=== PATIENT | male | born 1955 | race Caucasian/White ===

== ENCOUNTER 2020-04-07 16:30 | Outpatient (REF) | payer OTHER, SELFPAY | END 2020-04-07 16:31 | disposition home or self-care (01) | LOC: HO.LAB 16:30 | PROVIDERS: PCP Internal Medicine; Visit Provider Internal Medicine | DX: Z20.822 Contact with and (suspected) exposure to COVID-19 (principal) | CPT/HCPCS: 36415; C9803; U0003 ==

== ENCOUNTER 2020-10-08 12:14 | Outpatient (REF) | payer OTHER, SELFPAY ==
[2020-10-08 12:39] LABS: COVID-19 Test Negative (Negative)
== END 2020-10-08 12:15 | disposition home or self-care (01) ==
LOC: HO.LAB 12:14
PROVIDERS: PCP Internal Medicine; Visit Provider Internal Medicine
DX: Z20.822 Contact with and (suspected) exposure to COVID-19 (principal)
CPT/HCPCS: 36415; 87635; C9803

== ENCOUNTER 2021-03-11 17:39 | Emergency (ER) | payer OTHER, SELFPAY ==
[2021-03-11 19:14] VITALS: BP 154/77; PULSE 76; RESP 16; TEMP 36.9; O2SAT 99; BMI 23.7
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
[2021-03-11] MEDS: Diphth,Pertus(ACell),Tet Adult 0.5 ML SYRINGE IM (21:54)
== END 2021-03-11 22:23 | disposition home or self-care (01) ==
PROVIDERS: Emergency Provider Emergency Medicine Emergency Medical Services; PCP Internal Medicine
DX: T65.891A Toxic effect of other specified substances, accidental (unintentional), initial encounter (principal); T24.421A Corrosion of unspecified degree of right knee, initial encounter; T24.422A Corrosion of unspecified degree of left knee, initial encounter; Y93.9 Activity, unspecified; Y92.9 Unspecified place or not applicable; Y99.0 Civilian activity done for income or pay
CPT/HCPCS: 90471; 90715; 99283; 99284

== ENCOUNTER 2021-03-18 07:56 | Outpatient (RCR) | payer OTHER, SELFPAY | END 2021-04-15 15:08 | disposition home or self-care (01) | LOC: HO.WCC 07:56 | PROVIDERS: PCP Internal Medicine; Visit Provider Surgery | DX: T24.622A Corrosion of second degree of left knee, initial encounter (principal); T54.3X1A Toxic effect of corrosive alkalis and alkali-like substances, accidental (unintentional), initial encounter | CPT/HCPCS: 11042; 16020; 99212 ==

== ENCOUNTER 2022-11-04 11:50 | Emergency (ER) | payer OTHER, SELFPAY ==
[2022-11-04 12:08] VITALS: BP 153/96; PULSE 86; RESP 18; TEMP 36.6; O2SAT 98; BMI 25.2
--- NOTE | 2022-11-04 12:08 | ED.GENADULT ---
HPI - General Adult General Chief complaint: Wound/Laceration Stated complaint: Cut L index finger Time Seen by Provider: 11/04/22 14:47 Source: patient and RN notes reviewed Mode of arrival: ambulatory Limitations: no limitations History of Present Illness HPI narrative: This is a 66-year-old male presenting to the emergency department for evaluation of laceration to left 2nd digit. Patient reports that while he was at work he accidentally lacerated his left 2nd digit using a utility knife. Patient states that the utility knife was clean. He is up-to-date with his tetanus shot. Denies numbness or tingling into his finger. Denies weakness into his finger. Denies any other complaints or concerns at this time. MD complaint: Laceration left 2nd digit Onset (ago): minute(s) Location: left and upper extremity Radiation: non-radiation Severity: mild Relieving factors: none Exacerbating factors: none Associated symptoms: denies other symptoms Treatments prior to arrival: none Related Data Previous Rx's Medication Instructions Recorded bacitracin zinc 500 unit-polymyxin 1 appl topical Q8H 7 days #28.4 03/11/21 B 10,000 unit/gram topical ointment grams naproxen 500 mg tablet 500 mg PO BID PRN pain 10 days #20 03/11/21 tabs Allergies Allergy/AdvReac Type Severity Reaction Status Date / Time No Known Allergies Allergy Verified 11/04/22 12:08 [No Known Allergies*] Review of Systems Review of Systems: Yes all other systems are reviewed and are negative PMFSH Past Medical History Attestation statement: The following information was validated with the patient. Social History Social History Smoked in Last 30 Days: No Use of substances other than those prescribed or required for medical reasons: No Advance Directives: No Physical Exam ED Vital Signs: Vital Signs - 24 hr 11/04/22 12:08 11/04/22 14:41 Temperature 98 F Pulse Rate 86 62 Respiratory Rate 18 18 Blood Pressure 153/96 H 147/86 H Pulse Oximetry 98 97 Oxygen Delivery Method Room Air Room Air BMI result Body Mass Index 25.2 Const Other: General: Awake, alert, and oriented X3. No acute distress. HEENT: Normal inspection CVS: Normal heart rate and rhythm. Pulses normal. Respiratory: No respiratory distress Skin: Left 2nd digit with superficial linear vertical laceration measuring approximately 2 mm the base of the fingernail. No active bleeding or drainage. No foreign body noted. Full range of motion of the D IP PIP and MCP. Able to make a fist without difficulty. Radial pulses 2+. Distal sensation circulation intact. Neuro: Oriented X 3. No motor deficit. No sensory deficit. Course Course Course Narrative: RME- 66 year old male presents for evaluation of small left index finger laceration. Medical Decision Making Medical Decision Making MDM Narrative: 66-year-old male presenting to the emergency department for evaluation of superficial laceration to his left 2nd digit. On arrival, vital signs within normal limits besides a mildly hypertensive blood pressure at 153/96. Patient is asymptomatic, denies any headaches, dizziness, chest pain or shortness of breath. Wound was extensively cleansed using Betadine and saline, there is no foreign body, tendon involvement. Wound appears superficial, will close wound using Dermabond. Range of motion of the left 2nd finger full and intact. Procedure was well tolerated without any complications or concerns. Patient given good wound care instructions, advised to return with any signs of infection. Patient understands and agrees with plan. Patient is up-to-date with his tetanus. Patient stable for discharge. Differential Diagnosis Differential Diagnoses: The differential diagnosis associated with the presentation includes Laceration, contusion, abrasion, foreign body Discharge Plan Discharge Clinical Impression: Laceration Patient Disposition: Home, Self-Care Additional Instructions: We were able to close the wound on your finger with liquid bandage. Do not submerge your wound until it is fully healed. If the wound gets wet, pat dry, do not pick at wound. Watch for any signs of infection including but not limited to worsening redness, swelling, drainage, fevers or chills. Please return if any of these occur. Prescriptions: No Action naproxen 500 mg tablet 500 mg PO BID PRN (Reason: pain) 10 Days Qty: 20 0RF bacitracin zinc-polymyxin B 500-10,000 unit/gram ointment 1 appl topical Q8H 7 Days Qty: 28.4 0RF Interventions: ED Discharge Assessment Last Done: 11/04/22 16:08 Discharge Date/Time: 11/04/22 16:09
[2022-11-04 14:41] VITALS: BP 147/86; PULSE 62; RESP 18; O2SAT 97
--- NOTE | 2022-11-04 15:25 | PC.NURSE ---
PT HAS A TETANUS DOCUMENTED IN THE MR ON 03/11/21
--- NOTE | 2022-11-04 16:08 | PC.NURSE ---
DSD NONSTICK DRESSING APPLIED
== END 2022-11-04 16:09 | disposition home or self-care (01) ==
PROVIDERS: Emergency Provider Emergency Medicine; PCP Internal Medicine
DX: S61.211A Laceration without foreign body of left index finger without damage to nail, initial encounter (principal); W26.0XXA Contact with knife, initial encounter; Y93.9 Activity, unspecified; Y92.59 Other trade areas as the place of occurrence of the external cause; Y99.0 Civilian activity done for income or pay
CPT/HCPCS: 12001; 99282; 99284

== ENCOUNTER 2023-06-17 16:24 | Emergency (ER) | payer MEDICARE, SELFPAY ==
[2023-06-17 17:08] VITALS: BP 163/82; PULSE 79; RESP 14; TEMP 36.7; O2SAT 98; BMI 25.9
--- NOTE | 2023-06-17 17:26 | ED_ITS ---
HPI - General Adult General Chief complaint: Skin/Abscess/Foreign Body Stated complaint: rash all over body Time Seen by Provider: 06/17/23 17:45 Source: patient Mode of arrival: ambulatory Limitations: no limitations History of Present Illness HPI narrative: patient is a 67-year-old male who presents emergency department for evaluation of a recurrent rash to the bilateral arms trunk and back over the past 2 years. Recent onset over the past 2 weeks by his account is worsening. In the past as also involve the legs in the scalp but at this time it does not. He has been seen by dermatology and provided with a cream that he states did not improve his symptoms. He is supposed to see his primary care doctor in 3 days in regards to this rash. He has trialed OTC Benadryl without improvement in the itch. Denies any new lotions soaps or contact /environmental exposures to precipitate these symptoms. Denies recent antibiotic usage. Denies shortness of breath difficulty breathing or chest pain with this. Related Data Previous Rx's ?Medication ?Instructions ?Recorded bacitracin zinc 500 unit-polymyxin 1 appl topical Q8H 7 days #28.4 03/11/21 B 10,000 unit/gram topical ointment grams naproxen 500 mg tablet 500 mg PO BID PRN pain 10 days #20 03/11/21 tabs prednisone 20 mg tablet 40 mg (2 x 20 mg) PO DAILY 5 days 06/17/23 #10 tabs Allergies Allergy/AdvReac Type Severity Reaction Status Date / Time No Known Allergies Allergy Verified 06/17/23 17:13 [No Known Allergies*] Review of Systems Review of Systems: Yes all other systems are reviewed and are negative PMFSH Past Medical History Attestation statement: The following information was validated with the patient. Source: old records reviewed Social History Social History Advance Directives: No Advance Directives Information Provided: No Physical Exam ED Vital Signs: Vital Signs - 24 hr 06/17/23 17:08 06/17/23 18:48 Temperature 98.0 F 98 F Pulse Rate 79 79 Respiratory Rate 14 14 Blood Pressure 163/82 H 163/82 H Pulse Oximetry 98 98 Oxygen Delivery Method Room Air Room Air BMI result Body Mass Index 25.9 Appearance: Alert.?Oriented to person, place and time. No acute distress.?Normal affect. Eyes: Pupils equal, round and reactive to light.? ENT: Pharynx normal.?? Neck: Normal inspection.? Neck supple.?? CVS: Heart sounds normal. Normal heart rate and rhythm.? Pulses normal.?? Respiratory: No respiratory distress.? Lung sounds clear to auscultation bilaterally?? Abdomen: Soft and non-tender. Normoactive bowel sounds. No pulsatile mass.?? Skin: Skin warm and dry.? Normal skin color.? mid lower back with lichenified patch, superficial abrasions, no evidence of surrounding cellulitis. bilateral forearms with erythematous papules Extremities: No lower extremity edema.? No calf ttp? Neuro: Moves all extremities spontaneously. Sensation intact bilaterally. CN II-XII intact. No focal neuro deficits. Ambulates with normal steady gait. Course Course Course Narrative: RME performed by Angelica Redd PA-C. Patient is a 67 year old assigned male at presenting to the emergency department with rash over the last 2 years. Patient states that he has seen a food service team member and doesn't know what it is. Nothing makes it better. Detailed physical exam and review of systems are deferred to the nurse clinician. Patient placed back in the waiting room pending room availability. Medical Decision Making Medical Decision Making MDM Narrative: Patient is a 67-year-old male who presents emergency department for evaluation of a recurrent rash, on exam is noted to have mid lower back with lichenified patch, superficial abrasions, no evidence of surrounding cellulitis. bilateral forearms with erythematous papules and superficial abrasions. Upon review of pharmacy records he has previously received medium potency prescription triamcinolone 0.1% cream Which he reports has not been helpful. Exam is not consistent with Walker Ramy syndrome, TEN, DRESS. spares the hands and the feet, suspect less likely syphilis. exam not consistent with scabies. May be eczema versus psoriasis versus contact dermatitis. Given extent at this time will trial course of oral steroids to use in addition to the triamcinolone cream and recommend outpatient follow-up with his food service team member and PCP as scheduled on Tuesday. Discussed worrisome signs and symptoms that would warrant re- evaluation in the emergency department. All questions answered. Stable for discharge. Differential Diagnosis Differential Diagnoses: The differential diagnosis associated with the presentation includes ( see narrative above) Admission/Observation Consideration of admission/observation: Escalation of care including admission/observation considered ( see narrative above) External Record Review External record reviewed: Outpatient record Prescription Management I considered prescription management with: Other ( steroid) Discharge Plan Discharge Clinical Impression: Acute eruption of skin Patient Disposition: Home, Self-Care Instructions: Acute Rash (ED) Additional Instructions: take course of steroids as prescribed. Follow-up with primary care provider on Tuesday as scheduled. He should also consider following up with the food service team member. Return back to emergency department any new or worsening symptoms or concerns. Prescriptions: New prednisone 20 mg tablet 40 mg PO DAILY 5 Days Qty: 10 0RF No Action naproxen 500 mg tablet 500 mg PO BID PRN (Reason: pain) 10 Days Qty: 20 0RF bacitracin zinc-polymyxin B 500-10,000 unit/gram ointment 1 appl topical Q8H 7 Days Qty: 28.4 0RF Referrals: Aaron Ryan MD [Primary Care Provider] - Interventions: ED Discharge Assessment Last Done: 06/17/23 18:48 Discharge Date/Time: 06/17/23 18:49 Print Language: Chinese
[2023-06-17 18:48] VITALS: BP 163/82; PULSE 79; RESP 14; TEMP 36.6; O2SAT 98
== END 2023-06-17 18:49 | disposition home or self-care (01) ==
PROVIDERS: Emergency Provider Emergency Medicine; PCP Internal Medicine
DX: R21 Rash and other nonspecific skin eruption (principal)
CPT/HCPCS: 99282; 99283

== ENCOUNTER 2023-06-30 12:24 | Emergency (ER) | payer MEDICARE, SELFPAY ==
[2023-06-30] VITALS (7 sets, daily range): BP systolic 145–184; BP diastolic 93–128; PULSE 59–84; RESP 16–18; TEMP 36.6–36.8; O2SAT 98–99; BMI 28.7
--- NOTE | ~2023-06-30 | CT_ITS ---
CT ANGIOGRAM NECK WITH CONTRAST CT ANGIOGRAM BRAIN WITH CONTRAST CLINICAL INFORMATION: Sudden onset dizziness. COMPARISON: None available. TECHNIQUE: Test bolus sequences followed by intravenous administration 70 mL of Omnipaque 350. Helical imaging was performed in the axial plane from the thoracic inlet to the skull vertex. Delayed postcontrast imaging of the head was also performed. The data was processed at the biomedical engineering technologist workstation for generation of MIP sequences. Angled MIPs and volume rendered reformatted images were also generated at an offline 3D workstation under concurrent supervision. Stenoses are assessed in accordance with NASCET criteria unless otherwise indicated. This CT examination was performed using dose optimization techniques as appropriate, variously including the following: *Automated exposure control *Adjustment of mA and/or kV according to patient size (this includes techniques or standardized protocols for targeted exams where dose is matched to indication/reason for exam; i.e. extremities or head) *Use of iterative reconstruction technique FINDINGS: BRAIN: [There is no intracranial hemorrhage, hydrocephalus, extra-axial surface collection, midline shift, or other herniation pattern. Edwards to white matter differentiation is diffusely maintained without evidence of an evolved acute territorial infarct. The basilar cisterns are preserved. No significant soft tissue abnormality. No acute osseous abnormality. There is moderate mucosal thickening within the ethmoid air cells bilaterally and mild mucosal thickening throughout the remaining paranasal sinuses. The mastoid air cells are clear. Leftward deviation of the nasal septum with a leftward directed nasal septal spur. CERVICAL SOFT TISSUES AND LUNG APICES: Imaged upper lungs are clear. There is multilevel cervical spondylosis. No significant soft tissue findings within the neck. NECK CTA: Left common carotid artery arises from the brachiocephalic artery, an anatomic variant. Proximal arch vessels are non-stenotic. The vertebral arteries are codominant. No significant ostial stenosis is visualized on either side. Both vertebral arteries are widely patent throughout their extracranial cervical course. Both common and internal carotid arteries are normal in course and caliber.] BRAIN CTA: [There is normal opacification of major intracranial arteries. No focal flow-limiting stenosis nor discrete proximal large artery occlusion. Two adjacent aneurysms measuring 3 mm and 2 mm projecting inferiorly from the communicating segment of the right internal carotid artery. 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 Timing of the contrast bolus allows assessment of the major dural venous sinuses, which all opacify normally] CT/CT angio head neck IMPRESSION: - No acute intracranial findings. No acute arterial occlusions and no significant arterial stenoses within the head or neck. - Two adjacent aneurysms measuring 3 mm and 2 mm projecting inferiorly from the communicating segment of the right internal carotid artery. 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
--- NOTE | 2023-06-30 12:42 | PC.NURSE ---
Pt coming from home via EMS, reports sudden onset of dizziness while at work approx 1 hour ago, reports he had trouble walking at that time. Pt went home and did not feel better so called for EMS. Pt reports dizziness lasted approx 1 hour but feels better now, does report minor headache, 2/10, all over head. Pt denies any CP, SOB, recent illnesses, N/V/D, fevers, or any falls/head hit. Pt is alert and oriented, breathing even and unlabored, skin WNL. Pt neg for unilateral weakness, slurred speech, facial droop, or arm drift. 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 Provider at bedside.
--- NOTE | 2023-06-30 12:43 | ECG_ITS ---
Test Reason : DIZZINESS Blood Pressure : / mmHG Vent. Rate : 071 BPM Atrial Rate : 071 BPM P-R Int : 174 ms QRS Dur : 084 ms QT Int : 372 ms P-R-T Axes : 012 041 017 degrees QTc Int : 404 ms Normal sinus rhythm Normal ECG When compared with ECG of 11-MAR-2004 17:09, No significant change was found Referred By: Rebeca Mueller Electronically Signed By:BEN OCX
[2023-06-30 12:46] LABS: Glucose, Whole Blood 107 mg/dL (60-115)
--- NOTE | 2023-06-30 12:46 | ED.DIZZY ---
HPI - Dizziness General Chief Complaint: Dizziness Stated Complaint: DIZZY,SHAKEY PER EMS Time Seen by Provider: 06/30/23 12:35 Source: patient Mode of arrival: ambulatory Limitations: no limitations History of Present Illness HPI Narrative: patient comes to emergency room complaining of dizziness. Patient states that earlier today he was at work, patient was walking. Patient states that he had sudden onset of dizziness described as feeling unsteady, combination of room spinning and floor rocking sensation. Patient states that he had trouble walking, did not fall, did not lose consciousness. Patient denies chest pain or shortness of breath. Patient denies any upper or lower extremity motor deficits. Related Data Previous Rx's ?Medication ?Instructions ?Recorded bacitracin zinc 500 unit-polymyxin 1 appl topical Q8H 7 days #28.4 03/11/21 B 10,000 unit/gram topical ointment grams naproxen 500 mg tablet 500 mg PO BID PRN pain 10 days #20 03/11/21 tabs prednisone 20 mg tablet 40 mg (2 x 20 mg) PO DAILY 5 days 06/17/23 #10 tabs meclizine 50 mg tablet 50 mg PO . t.i.d. PRN dizziness 06/30/23 #14 tabs Allergies Allergy/AdvReac Type Severity Reaction Status Date / Time No Known Allergies Allergy Verified 06/30/23 12:39 [No Known Allergies*] Review of Systems Review of Systems: Constitutional : No Weight loss, No Fever, No Chills, No Night Sweats, No Fatigue, No Malaise ENT/Mouth : No Hearing loss, No Ear Pain, No Nasal Congestion, No Sinus Pain, No Hoarseness, No sore throat, No Rhinorrhea, No Swallowing Difficulty Eyes: No Eye Pain, No Swelling, No Redness, No Foreign Body, No Discharge, No Vision Changes Cardiovascular : No Chest Pain, No SOB, No Dyspnea on Exertion, No Orthopnea, No Edema, No Palpitations Respiratory : No Cough, No Sputum, No Wheezing, No Smoke Exposure, No Dyspnea Gastrointestinal : No Nausea, No Vomiting, No Diarrhea, No Constipation, No abdominal Pain, No Hematochezia, No Melena Genitourinary : no irregular bleeding, No Dysuria, No Urinary Frequency, No Hematuria, No Urinary Incontinence, No Urgency, No Flank Pain, No Urinary Flow Changes, No Hesitancy Musculoskeletal : No joint pain, No Myalgias, No Joint Swelling Skin : No Skin Lesions, No rash Neuro : No Weakness, No Numbness, No Paresthesias, No Loss of Consciousness, Complaining of mild headache, dizziness described as room spinning and floor rocking sensation Psych : No Anxiety/Panic, No Depression, No SI/HI/AH/VH, No Social Issues, Heme/Lymph: No Bruising, No Bleeding,No Lymphadenopathy Endocrine : No Polyuria, No Polydipsia, No Temperature Intolerance [facility] Social History Social History Smoked in Last 30 Days: No Use of substances other than those prescribed or required for medical reasons: No Advance Directives: No Advance Directives Information Provided: Yes Physical Exam Vital Signs: Vital Signs: Last Vital Signs Temp 97.9 F 06/30/23 14:47 Pulse 77 06/30/23 14:50 Resp 16 06/30/23 14:47 BP 154/95 H 06/30/23 14:50 Pulse Ox 98 06/30/23 14:47 O2 Del Method Room Air 06/30/23 14:47 BMI result Body Mass Index 28.7 Const: Other: Appearance: Alert. Oriented X3. No acute distress. Eyes: Pupils equal, round and reactive to light. no nystagmus ENT: Pharynx normal. Neck: Normal inspection. Neck supple. No lymph nodes noted. No crepitus CVS: Normal heart rate and rhythm. Pulses normal. Normal S1 and S2 Respiratory: No respiratory distress. Breath sounds normal. No Wheezing. No rales Abdomen: Soft and nontender. No rigidity. No distention. Skin: Skin warm and dry. Normal skin color. Normal skin turgor. Extremities: No lower extremity edema. No Lacerations. No Rash Neuro: Oriented X 3. No motor deficit. No sensory deficit. Moving all extremities. No slurred speech. CN 2 through 12 grossly intact Psych: calm, cooperative, normal affect NIH Stroke Scale Internal: Initial- Upon Arrival Level of Consciousness: Alert Level of Consciousness Questions: Answers both questions correctly Level of Consciousness Commands: Performs both tasks correctly Best Gaze: Normal Visual: No visual loss Facial Palsy: Normal Motor Arm (Right): No drift Motor Arm (Left): No drift Motor Leg (Right): No drift Motor Leg (Left): No drift Limb Ataxia: Absent Sensory: Normal Best Language: No aphasia Dysarthia: Normal Extinction and Inattention: No abnormality Score: 0 Course Course Course Narrative: - all of patient's labs, EKG imaging are orthostatic vitals pending - for symptomatic relief, patient receiving 2 mg of p.o. diazepam and 50 mg of meclizine Medications Administered Discontinued Medications Generic Name Dose Route Start Last Admin Trade Name Butch PRN Reason Stop Dose Admin Diazepam 2 mg 06/30/23 12:45 06/30/23 13:12 Diazepam 2 Mg Tablet PO 06/30/23 12:46 2 mg ONCE ONE Administration Sodium Chloride 1,000 mls @ 999 mls/hr 06/30/23 12:43 06/30/23 14:47 Ns IVCONT 06/30/23 13:43 Infused .Q1H1M ONE Infusion Iohexol 100 ml 06/30/23 14:01 06/30/23 14:01 Iohexol 350 Mg/Ml 100 Ml Infus..Btl IV 06/30/23 14:02 70 ml ONCE ONE Administration Meclizine HCl 50 mg 06/30/23 12:45 06/30/23 13:12 Meclizine Hcl 25 Mg Tablet PO 06/30/23 12:46 50 mg ONCE ONE Administration Medical Decision Making Medical Decision Making [facility] Narrative: - my interpretation of CT scan: No obvious abnormality, per Radiology report, there 2 small aneurysm measuring 3 mm and 2 mm projecting inferiorly from the communicating segment of the right internal carotid artery. - patient made aware of the CT scan results, patient will follow-up with his primary care physician. Patient will likely need monitoring/ imaging over the next few months/years - My interpretation of labs, normal hematology, normal chemistry , normal troponin, urine toxicology negative, ETOH negative - patient states that after the dose of p.o. meclizine and diazepam, he is completely asymptomatic. Patient was ambulated around the emergency room, patient has steady gait, no dizziness. Orthostatic vitals negative - given patient's description of symptoms, patient likely had an episode of BPPV Differential Diagnosis Differential Diagnoses: The differential diagnosis associated with the presentation includes ( BPPV, posterior CVA, orthostatic hypotension) Admission/Observation Consideration of admission/observation: Escalation of care including admission/observation considered ( Given Patient's symptoms and presentation, admission was considered.) Lab Data [facility] Lab Attestation statement: I reviewed the patient's lab results. 06/30/23 13:04 06/30/23 13:04 Labs: Lab Results 06/30/23 06/30/23 06/30/23 Range/Units 12:42 13:04 13:07 WBC 6.7 (4.8-10.8) X10*3/uL RBC 5.06 (4.60-5.80) X10*6/uL Hgb 14.8 (14.0-18.0) g/dl Hct 44.0 (42.0-52.0) % MCV 87.0 (80.0-98.0) fL MCH 29.2 (27.0-33.0) pg MCHC 33.6 (31.0-36.0) g/dl RDW 13.0 (11.0-16.0) % Plt Count 258 (160-400) X10*3/uL MPV 9.9 (9.4-12.4) fL Immature Gran % (Auto) 0.2 (0.0-0.4) % Neut % (Auto) 69.5 (45-73) % Lymph % (Auto) 16.5 L (20-40) % [place] % (Auto) 7.5 (2-11) % Eos % (Auto) 5.7 H (0-4) % Baso % (Auto) 0.6 (0-2) % Lymph # (Auto) 1.1 L (1.2-4.9) X10*3/uL [place] # (Auto) 0.5 (0.1-1.2) X10*3/uL Eos # (Auto) 0.4 (0.0-0.4) X10*3/uL Baso # (Auto) 0.0 (0.0-0.2) X10*3/uL Abs Immat Gran (auto) 0.01 (0.00-0.03) X10*3/uL Absolute Neuts (auto) 4.6 (2.0-8.3) x10*3/uL Absolute Nucleated RBC 0.000 (0.0-0.012) X10*3/uL Nucleated RBC % (auto) 0.0 (0.0-0.2) /100WBC PT 11.8 (11.1-13.3) SEC INR 1.0 (0.9-1.1) Sodium 141 (135-145) mmol/L Potassium 4.2 (3.3-5.1) mmol/L Chloride 110 H (96-108) mmol/L Carbon Dioxide 27 (22-29) mmol/L Anion Gap 8 L (12-20) BUN 9 (9-16) mg/dL Creatinine 0.97 (0.5-1.4) mg/dL Estim Creat Clear Calc 83.6 Estimated GFR > 60 POC Glucose 107 (60-115) mg/dL Random Glucose 104 (60-115) mg/dL Calcium 9.4 (8.4-10.2) mg/dL Magnesium 2.1 (1.6-2.6) mg/dL Total Bilirubin 0.4 (0.0-1.0) mg/dL Direct Bilirubin 0.2 (0.0-0.5) mg/dL AST 20 (5-37) U/L ALT 18 (0-40) U/L Alkaline Phosphatase 83 (39-117) U/L Troponin I High Sens < 2.7 (<3.5-35.0) ng/L Total Protein 7.2 (6.5-8.0) g/dL Albumin 4.2 (3.5-5.0) g/dL Urine Color Yellow Urine Appearance Clear Urine pH 7.0 (5.0-9.0) Ur Specific [place] <= 1.005 (1.005-1.025) Urine Protein Negative (Neg-Trace) mg/dL Urine Glucose (UA) Negative (Negative) mg/dL Urine Ketones Negative (Negative) mg/dL Urine Blood Negative (Negative) Urine Nitrite Negative (Negative) Ur Leukocyte Esterase Negative (Negative) Urine Opiates Screen Not Detected (Not Detect) Ur Buprenorphine Scrn Not Detected (Not Detect) ng/mL Ur Oxycodone Screen Not Detected (Not Detect) ng/mL Urine Methadone Screen Not Detected (Not Detect) ng/mL Urine Fentanyl Screen Not Detected (Not Detect) Ur Barbiturates Screen Not Detected (Not Detect) Ur Phencyclidine Scrn Not Detected (Not Detect) Ur Amphetamines Screen Not Detected (Not Detect) U Benzodiazepines Scrn Not Detected (Not Detect) Urine Cocaine Screen Not Detected (Not Detect) U Marijuana (THC) Screen Not Detected (Not Detect) Ethyl Alcohol < 10 mg/dL Independent Interpretation I performed an independent interpretation of an: CT Scan Interpretation: BRAIN: [There is no intracranial hemorrhage, hydrocephalus, extra-axial surface collection, midline shift, or other herniation pattern. Edwards to white matter differentiation is diffusely maintained without evidence of an evolved acute territorial infarct. The basilar cisterns are preserved. No significant soft tissue abnormality. No acute osseous abnormality. There is moderate mucosal thickening within the ethmoid air cells bilaterally and mild mucosal thickening throughout the remaining paranasal sinuses. The mastoid air cells are clear. Leftward deviation of the nasal septum with a leftward directed nasal septal spur. CERVICAL SOFT TISSUES AND LUNG APICES: Imaged upper lungs are clear. There is multilevel cervical spondylosis. No significant soft tissue findings within the neck. NECK CTA: Left common carotid artery arises from the brachiocephalic artery, an anatomic variant. Proximal arch vessels are non-stenotic. The vertebral arteries are codominant. No significant ostial stenosis is visualized on either side. Both vertebral arteries are widely patent throughout their extracranial cervical course. Both common and internal carotid arteries are normal in course and caliber.] BRAIN CTA: [There is normal opacification of major intracranial arteries. No focal flow-limiting stenosis nor discrete proximal large artery occlusion. Two adjacent aneurysms measuring 3 mm and 2 mm projecting inferiorly from the communicating segment of the right internal carotid artery. 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 Timing of the contrast bolus allows assessment of the major dural venous sinuses, which all opacify normally] CT/CT angio head neck IMPRESSION: - No acute intracranial findings. No acute arterial occlusions and no significant arterial stenoses within the head or neck. - Two adjacent aneurysms measuring 3 mm and 2 mm projecting inferiorly from the communicating segment of the right internal carotid artery. 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 Radiology Impression Discussion of test interpretation with radiology: I have reviewed the radiologist's reading. Critical Care Time Critical Care Time Critical Care Time: Yes Total Critical Care Time: 45 Attestation: I have personally provided critical care time. Time includes review of lab data, radiology results, discussion with consultants, and monitoring for potential decompensation. Intervention performed as documented. Discharge Plan Discharge Clinical Impression: Benign paroxysmal positional vertigo Patient Disposition: Home, Self-Care Instructions: Benign Paroxysmal Positional Vertigo (ED) Additional Instructions: Incidentally, we saw on your CT scan 3 small aneurysms projecting from the internal carotid artery. Please discuss this findings with your primary care physician. You will likely need follow-up with vascular surgery , monitor is progression. Please follow-up with your primary care physician tomorrow. If you have any worsening or new symptoms, please return to the emergency room or call 911 Prescriptions: New meclizine 50 mg tablet 50 mg PO . t.i.d. PRN (Reason: dizziness) Qty: 14 0RF No Action naproxen 500 mg tablet 500 mg PO BID PRN (Reason: pain) 10 Days Qty: 20 0RF bacitracin zinc-polymyxin B 500-10,000 unit/gram ointment 1 appl topical Q8H 7 Days Qty: 28.4 0RF prednisone 20 mg tablet 40 mg PO DAILY 5 Days Qty: 10 0RF Referrals: Isrrael Rosa MD [Physician] - Stand Alone Forms: Work/School Release Print Language: Turkmen
[2023-06-30] MEDS: Meclizine HCl 25 MG TABLET 50 MG PO (13:12)
[2023-06-30] MEDS: diazePAM 2 MG TABLET PO (13:12)
[2023-06-30 13:13] LABS: MANUAL DIFF FLAG NO
[2023-06-30] MEDS: 0.9 % Sodium Chloride 1,000 ML 999 ML IVCONT (13:13)
[2023-06-30 13:14] LABS: Basophils Percent Auto 0.6 % (0-2); Eosinophils Absolute Auto 0.4 X10*3/uL (0.0-0.4); Eosinophils Percent Auto 5.7 % (0-4); Hemoglobin 14.8 g/dl (14.0-18.0); Imm Gran Abs Auto 0.01 X10*3/uL (0.00-0.03); Imm Gran Pct Auto 0.2 % (0.0-0.4); Lymphocytes Absolute Auto 1.1 X10*3/uL (1.2-4.9); Lymphocytes Percent Auto 16.5 % (20-40); Mean Corpuscular HGB Conc 33.6 g/dl (31.0-36.0); Mean Corpuscular Hemoglobin 29.2 pg (27.0-33.0); Mean Platelet Volume 9.9 fL (9.4-12.4); Monocytes Absolute Auto 0.5 X10*3/uL (0.1-1.2); Monocytes Percent Auto 7.5 % (2-11); Neutrophils Absolute Auto 4.6 x10*3/uL (2.0-8.3); Neutrophils Percent Auto 69.5 % (45-73); Platelet Count 258 X10*3/uL (160-400); Red Blood Count 5.06 X10*6/uL (4.60-5.80); White Blood Count 6.7 X10*3/uL (4.8-10.8)
[2023-06-30 13:17] LABS: Appearance Urine Clear; Color Urine Yellow; Glucose Urine UA Negative (Negative); Leukocyte Esterase Urine Negative (Negative); Nitrite Urine Negative (Negative); Specific Gravity - Urine <= 1.005 (1.005-1.025); Urine Blood Negative (Negative); Urine Ketones Negative (Negative); Urine Protein Negative (Neg-Trace)
[2023-06-30 13:20] LABS: Prothrombin Time 11.8 SEC (11.1-13.3)
[2023-06-30 13:27] LABS: Amphetamine Screen Urine Not Detected (Not Detect); Barbiturates, Urine Not Detected (Not Detect); Benzodiazepines Screen Urine Not Detected (Not Detect); Buprenorphine Scr Not Detected (Not Detect); Cannabinoid Screen Urine Not Detected (Not Detect); Cocaine Screen Urine Not Detected (Not Detect); Fentanyl, urine Not Detected (Not Detect); Methadone Screen, Urine Not Detected (Not Detect); Opiate Screen Urine Not Detected (Not Detect); Oxycodone Screen Urine Not Detected (Not Detect); Phencyclidine Screen Urine Not Detected (Not Detect)
[2023-06-30 13:31] LABS: Alanine Aminotransferase 18 U/L (0-40); Albumin Level 4.2 g/dL (3.5-5.0); Alkaline Phosphatase 83 U/L (39-117); Anion Gap 8 (12-20); Aspartate Amino Transferase 20 U/L (5-37); Bilirubin Direct 0.2 mg/dL (0.0-0.5); Bilirubin Total 0.4 mg/dL (0.0-1.0); Blood Urea Nitrogen 9 mg/dL (9-16); Calcium 9.4 mg/dL (8.4-10.2); Carbon Dioxide 27 mmol/L (22-29); Chloride 110 mmol/L (96-108); Creatinine Clr Calc Pharmacy 83.6; Estimated Glomerular Filt Rate > 60; Glucose Random 104 mg/dL (60-115); Magnesium 2.1 mg/dL (1.6-2.6); Potassium 4.2 mmol/L (3.3-5.1); Sodium 141 mmol/L (135-145); Total Protein 7.2 g/dL (6.5-8.0)
[2023-06-30 13:33] LABS: Ethanol < 10 mg/dL
[2023-06-30 13:38] LABS: Troponin-I High Sensitivity < 2.7 ng/L (<3.5-35.0)
[2023-06-30] MEDS: iohexoL 350 MG/ML 100 ML INFUS..BTL IV (14:01)
--- NOTE | 2023-06-30 15:05 | PC.NURSE ---
Pt ambulated with RN per MD orders, pt ambulated with steady gait, denies any dizziness or pain. No issues with walking, reports he feels better overall.
== END 2023-06-30 15:53 | disposition home or self-care (01) ==
PROVIDERS: Emergency Provider Emergency Medicine
DX: H81.10 Benign paroxysmal vertigo, unspecified ear (principal); I72.0 Aneurysm of carotid artery
CPT/HCPCS: 36415; 70496; 70498; 80048; 80076; 80307; 81003; 82947; 83735; 84484; 85025; 85610; 93005; 96360; 96361; 99285; Q9967

== ENCOUNTER → 2023-06-30 12:43 | Outpatient (BNV) | payer MEDICARE, SELFPAY | PROVIDERS: Emergency Provider Emergency Medicine; Visit Provider Internal Medicine | DX: R42 Dizziness and giddiness (principal) | CPT/HCPCS: 93010 ==

== ENCOUNTER 2024-08-09 08:46 | Outpatient (REF) | payer MEDICARE, SELFPAY ==
--- NOTE | ~2024-08-09 | CT_ITS ---
CLINICAL HISTORY: BRAIN ANEURYSM CT angiography head and neck with contrast. 3D Postprocessing. Comparison: None Findings: Aortic arch and cervical great vessels are patent with no aneurysm, dissection, hemodynamically significant stenoses, or occlusion. Intracranial arteries are patent. No aneurysm, dissection, hemodynamically significant stenoses, or occlusion. No abnormal intracranial enhancement. The visualized thyroid gland is unremarkable. No cervical mass or fluid collection. Lung apices clear. No acute fracture. IMPRESSION: Patent head and neck CTA. This document has been electronically signed by: Eliud Polanco MD on 08/10/2024 09:30:26
--- OUTSIDE RECORDS SUMMARY | 2024-08-09 09:00 | XMS_ITS | Clinical Summary ---
Author Organization [facility] [address] [place] [address] [place] [phone] Phone Care Team Providers Care Regional Wildlife Agent Name Role Phone Tacos Damon Primary Care Provider [phone] Allergies No known active allergies Medications doxycycline hyclate (VIBRA-TABS) 100 mg tablet Take 1 tablet (100 mg total) by mouth 2 (two) times a day. Active bisacodyL (DULCOLAX) 5 mg EC tablet Take 2 tablets by mouth right before your first dose of liquid prep. 4 Active bisacodyL (DULCOLAX) 5 mg EC tablet Take 2 tabs by mouth right before beginning bowel prep. Follow instructions given by office for timing. 4 Active meclizine (ANTIVERT) 50 mg tablet TAKE 1 TABLET BY MOUTH 3 TIMES A DAY NEEDED FOR DIZZINESS 4 Active acetaminophen (TYLENOL) 325 mg tablet Take 2 tablets (650 mg total) by mouth every 6 (six) hours if needed. Active betamethasone, augmented, (DIPROLENE-AF) 0.05 % cream Apply to affected areas twice daily for 2 weeks 4 Active cetirizine (ZyrTEC) 10 mg tablet Take 1 tablet (10 mg total) by mouth 1 (one) time each day. 4 Active aspirin 81 mg EC tablet Take 1 tablet (81 mg total) by mouth 1 (one) time each day. 5 Active losartan (Cozaar) 50 mg tablet Take 1 tablet (50 mg total) by mouth 1 (one) time each day. 90 each 3 5 Active Active Problems Problem Noted Date Diagnosed Date Brain aneurysm 07/14/2023 Overview (02/23/2024): Last Assessment & Plan: I reviewed the findings from both [place] and [place] with Mr. Patel. They are consistent with small right-sided anterior circulation aneurysms though the exact measurements differ. They show no sign of blebs and are low risk of rupture. We discussed the natural history and rupture rate of aneurysms but, he has no risk factors and at this point, we can follow this with serial imaging. I would obtain another CTA in 1 year. Primary hypertension 07/14/2023 MRSA cellulitis 02/22/2014 Adjustment disorder with depressed mood 05/04/19 06 Encounters Date Type Department Care Team Description 06/26/2024 8:30 AM EDT Office Visit Adult Medicine [address] [phone] Tacos Damon PA Primary hypertension (Primary Dx); Need for vaccination against Streptococcus pneumoniae; Need for tetanus, diphtheria, and acellular pertussis (Tdap) vaccine; Brain aneurysm; Adjustment disorder with depressed mood; Encounter for screening for malignant neoplasm of prostate from Last 3 Months Immunizations Name Administration Dates Next Due Influenza Quadravalent, MDCK , 0.5ml, preservative free (Flucelvax) 6mo and older 02/07/2018 Influenza Quadravalent, MDCK , 0.5ml, with preservative (Flucelvax) 6mo and older 01/03/2017 Influenza trivalent, 0.5mL, preservative free (Fluarix; FluLaval; Fluzone) ages 6mo and older (Afluria) 3 years and older 01/29/2014,01/08/2011,11/25/2009 Influenza, Unspecified 02/11/2020 Pneumococcal conjugate 20 va lent (Prevnar 20, PCV 20) 2mo and older 06/26/2024 Td, Unspecified 09/17/2003 Tdap Tetanus diptheria acell ular pertussis (Boostrix; Adacel) 7yo and older 06/26/2024,01/29/2014 Surgical History Surgery Date Site/Laterality Comments COLONOSCOPY 12/20/2007 PROCEDURE: HISTORICAL COLONOSCOPY; COMMENT: adenoma and hemorrhoids; repeat in three years COLONOSCOPY 03/02/2011 PROCEDURE: NE COLONOSCOPY STOMA DX INCLUDING COLLJ SPEC SPX; COMMENT: adenoma and hemorrhoids; repeat in 5 years COLONOSCOPY 03/17/2015 PROCEDURE: HISTORICAL COLONOSCOPY; COMMENT: hemorrhoids; repeat in 5 yrs COLONOSCOPY 08/04/2023 PROCEDURE: HISTORICAL COLONOSCOPY; COMMENT: muslu 4 polyps 5 yrs Medical History Medical History Date Comments Personal history of colonic polyps 11/04/2008 DX:Personal history of colonic polyps MRSA cellulitis 02/22/2014 DX:MRSA cellulit is Essential hypertension DX:Essent ial hypertension Aneurysm (CMS/HCC V24) DX:[facility] sm ([facility]) Family History Medical History Relation Name Comments Parkinson's Disease Father Dementia Mother Relation Name Status Comments Father (Age 74) parkinsons 6 fulll sibs several 1/2 sibs Mother (Age 74) dm htn Sister 1 Alive Sister 2 Alive Sister 3 Alive Sister 4 Alive Sister 5 Alive Sister 6 Alive Social History Tobacco Use Types Packs/Day Years Used Date Smoking Tobacco: Former Smokeless Tobacco: Never Tobacco Cessation:Counseling Given: Not Answered Alcohol Use Standard Drinks/Week Comments No 0 (1 standard drink = 0.6 oz pur e alcohol) Sex and Gender Information Value Date Recorded Sex Assigned at Not on file Legal Sex Male 4:34 AM EST Gender Identity Not on file Sexual Orientation Not on file Obstetrics History Last Filed Vital Signs Vital Sign Reading Time Taken Comments Blood Pressure 143/80 06/26/2024 8:43 AM EDT Pulse 75 06/26/2024 8:43 AM EDT Temperature 35.9 ??C (96.7 ??F) 06/26/2024 8:43 AM ED T Respiratory Rate 16 06/26/2024 8:43 AM EDT Oxygen Saturation - - Inhaled Oxygen Concentration - - Weight 88.8 kg (195 lb 12.8 oz) 06/26/2024 8:43 AM EDT Height 188 cm (6' 2 ) 06/26/2024 8:43 AM EDT Body Mass Index 25.14 06/26/2024 8:43 AM EDT Plan of Treatment Upcoming Encounters Date Type Department Care Team (Late st Contact Info) Description 08/17/2024 10:30 AM EDT Office Visit [address] [place] [address] Chely Monique MD [address] [place] [address] 11/26/2024 8:30 AM EDT Office Visit Adult Medicine [facility] [address] [place] [address] Tacos Damon PA [address] [place] [address] Health Maintenance Due Date Last Done Comments Zoster Vaccines (1 of 2) 11/22/2005 Falls Risk Assessment 02/20/2022 Social Influencers of Health Screening 02/20/2022 COVID-19 Vaccine ( season) 2023 Depression Screening 06/26/2024 06/27/2023 Medicare Annual Wellness Visit 06/26/2024 06/27/2023 Influenza Vaccine (Season Ended) 2024 02/11/2020, 02/07/2018, 01/03/2017, Additional history exists Hypertension/CHF/CAD Annual BMP Blood Test 07/16/2025 07/16/2024, 06/27/2023 Colorectal Cancer Screening: Colonoscopy 08/03/2028 08/04/2023 Cholesterol Screening (Lipid Panel) 07/16/2029 07/16/2024, 06/27/2023 RSV Immunization Adult Patients (1 - 1-dose 75+ series) 11/22/2030 DTaP,Tdap,and Td Vaccines (4 - Td or Tdap) 06/26/2034 06/26/2024, 01/29/2014, 09/17/2003 Hepatitis C Screening Completed 10/06/2012 Abdominal Aortic Aneurysm (AAA) Screen Completed 07/13/2023, 07/13/2023, 07/13/2023 Pneumococcal Vaccine: 50+ Years Completed 06/26/2024 HIB Vaccines Aged Out No longer eligi ble based on patient's age to complete this topic HPV Vaccines Aged Out No longer eligi ble based on patient's age to complete this topic Hepatitis A Vaccines Aged Out No long er eligible based on patient's age to complete this topic Hepatitis B Vaccines Aged Out No long er eligible based on patient's age to complete this topic IPV Vaccines Aged Out No longer eligi ble based on patient's age to complete this topic MMR Vaccines Aged Out No longer eligi ble based on patient's age to complete this topic Meningococcal ACWY Vaccine Aged Out N o longer eligible based on patient's age to complete this topic Meningococcal B Vaccine Aged Out No l onger eligible based on patient's age to complete this topic RSV Immunization Patients Under 20 months Aged Out No longer eligible based on patient's age to complete this topic Varicella Vaccines Aged Out No longer eligible based on patient's age to complete this topic Procedures Procedure Name Priority Date/Time Associated Diagnosis Comments LIPID PANEL WITH REFLEX TO DIRECT LDL Routine 07/16/2024 9:06 AM EDT Need for vaccination against Streptococcus pneumoniae Need for tetanus, diphtheria, and acellular pertussis (Tdap) vaccine Primary hypertension Brain aneurysm Adjustment disorder with depressed mood COMPREHENSIVE METABOLIC PANEL Routine 07/16/2024 9:06 AM EDT Need for vaccination against Streptococcus pneumoniae Need for tetanus, diphtheria, and acellular pertussis (Tdap) vaccine Primary hypertension Brain aneurysm Adjustment disorder with depressed mood PROSTATE SPECIFIC ANTIGEN SCREEN Routine 07/16/2024 9:06 AM EDT Need for vaccination against Streptococcus pneumoniae Need for tetanus, diphtheria, and acellular pertussis (Tdap) vaccine Primary hypertension Brain aneurysm Adjustment disorder with depressed mood Encounter for screening for malignant neoplasm of prostate COLONOSCOPY Routine 08/04/2023 US ABDOMINAL AORTA REAL TIME SCREEN STUDY AAA Routine 07/13/2023 8:31 AM EDT Rash and other nonspecific skin eruption Cellulitis, unspecified Methicillin resistant Staphylococcus aureus infection as the cause of diseases classified elsewhere Impaired fasting glucose Personal history of colonic polyps Adjustment disorder with depressed mood Encounter for screening for malignant neoplasm of colon DEPRESSION SCREENING Routine 06/27/2023 HEPATITIS C SCREENING Routine 10/06/2012 from Last 3 Months or Most Recently Relevant to Health Maintenance Results * Prostate specific antigen screen (07/16/2024 9:06 AM EDT) Pathologist [facility] PSA 2.70 0.00 - 4.00 ng/mL LAB CHEMISTRY METHOD 07/16/2024 2:10 PM EDT [facility] Blood Venous blood specimen / Unknown Venipuncture / Unknown 07/16/2024 9:06 AM EDT 07/16/2024 9:06 AM EDT Narrative [facility] - 07/16/2024 2:10 PM EDT The Siemens Advia Centaur Chemiluminescent Immunoassay is used. Results obtained with different assay methods or kits cannot be used interchangeably. Results cannot be interpreted as absolute evidence of the presence or absence of malignant disease. Tacos MONREAL LAB BLOOD ORDERABLES Kirstie bonilla Result [facility] [address] [place] [address], [place] [phone] * (ABNORMAL) Lipid panel with reflex to direct LDL (07/16/2024 9:06 AM EDT) [facility] Cholesterol 176 0 - 200 mg/dL LAB CHEMISTRY METHOD [facility]24 [facility] Triglycerides 101 0 - 150 mg/dL LAB CHE[facility]STRY METHOD [facility]/16[facility]24 1:[facility] HDL 42 >=40 mg/dL LAB CHEMISTRY METHOD 07/16/2024 1:48 PM EDT [facility] LDL Calculated 114(H) 0 - 100 mg/dL LAB CHEMISTRY METHOD [facility]/16[facility]2024 1:[facility] VLDL Cholesterol Doron 20.2 mg/dL LAB CHEMISTRY METHOD 07/16/2024 1:48 PM [facility] Non HDL Chol. (LDL+VLDL) 134 <145 mg/dL LAB CHEMISTRY METHOD 07/16/2024 1:48 PM EDT [facility] Chol/HDL Ratio 4.2 0.0 - 4.4 LAB CHEMISTRY METHOD 07/16/2024 1:48 PM [facility] Blood Venous blood specimen / Unknown Venipuncture / Unknown 07/16/2024 9:06 AM EDT 07/16/2024 9:06 AM EDT us Tac[facility] MONREAL LAB BLOOD ORDERABLES Kirstie l Result [facility] [address] [place] [address], [place] [phone] * Comprehensive metabolic panel (07/16/2024 9:06 AM EDT) Sodium 142 133 - 145 mmol/L LAB CHEMISTRY METHOD 07/16/2024 1:48 PM [facility] Potassium 5.0 3.5 - 5.5 mmol/L LAB CHEMISTRY METHOD 07/16/2024 1:48 PM [facility] Chloride 110 96 - 110 mmol/L LAB CHEMISTRY METHOD 07/16/2024 1:48 PM [facility] CO2 27 21 - 32 mmol/L LAB CHEMISTRY METHOD 07/16/2024 1:48 PM [facility] Anion Gap 5 3 - 11 LAB CHEMISTRY METHOD 07/16/2024 1:48 PM [facility] Glucose 100 70 - 100 mg/dL LAB CHEMISTRY METHOD 07/16/2024 1:48 PM [facility] BUN 12 5 - 25 mg/dL LAB CHEMISTRY METHOD 07/16/2024 1:48 PM [facility] Creatinine 0.93 0.70 - 1.30 mg/dL LAB CHEMISTRY METHOD 07/16/2024 1:48 PM [facility] eGFR 89 >=60 mL/min/1. 73m2 LAB CHEMISTRY METHOD 07/16/2024 1:48 PM EDT [facility] Comment:Calculation based on the??Chronic Kidney Disease Epidemiology Collaboration (CKD-EPI) equation refit??without adjustment for race. BUN/Creatinine Ratio 12.9 LAB CHEMISTRY METHOD 07/16/2024 1:48 PM T [facility] Calcium 8.8 8.5 - 10.5 mg/dL LAB CHEMISTRY METHOD 07/16/2024 1:48 PM [facility] AST (SGOT) 17 10 - 42 unit/L LAB CHEMISTRY METHOD 07/16/2024 1:48 PM [facility] ALT (SGPT) 21 10 - 60 unit/L LAB CHEMISTRY METHOD 07/16/2024 1:48 PM [facility] Alkaline Phosphatase 92 42 - 121 unit/L LAB CHEMISTRY METHOD 07/16/2024 1:48 PM [facility] Total Protein 6.8 6.0 - 8.0 g/dL LAB CHEMISTRY METHOD 07/16/2024 1:48 PM [facility] Albumin 3.6 3.2 - 5.0 g/dL LAB CHEMISTRY METHOD 07/16/2024 1:48 PM [facility] Total Bilirubin 0.4 0.0 - 1.4 mg/dL LAB CHEMISTRY METHOD 07/16/2024 1:48 PM [facility] Blood Venous blood specimen / Unknown Venipuncture / Unknown 07/16/2024 9:06 AM EDT 07/16/2024 9:06 AM EDT [facility] MONREAL LAB BLOOD ORDERABLES Kirstie l Result [facility] [address] [place] [address], [place] [phone] * Colonoscopy (08/04/2023) Colonoscopy abstracted, no interpretation Anatomical Region Laterality Modality Other Historical Provider HEALTH MAINTENANCE Final Result * US ABDOMINAL AORTA REAL TIME SCREEN STUDY AAA (07/13/2023 8:31 AM EDT) Anatomical Region Laterality Modality Ultrasound 06/27/2023 12:1 2 PM EDT Narrative 07/13/2023 2:29 PM EDT Ultrasound of the abdominal aorta. HISTORY: Screening for AAA. There is no evidence of AAA. ??Proximal aorta measures 2.3 cm AP, mid aorta measures 1.8 cm AP, distal aorta measures 1.7 cm AP. ??Proximal common iliac arteries measure 1.1 cm each. CONCLUSIONS: No evidence of AAA. Procedure Note Kaelyn Cody MD - 10/31/2023 Ultrasound of the abdominal aorta. HISTORY: Screening for AAA. There is no evidence of AAA. Proximal aorta measures 2.3 cm AP, mid aortameasures 1.8 cm AP, distal aorta measures 1.7 cm AP. Proximal common iliac arteries measure1.1 cm each. CONCLUSIONS: No evidence of AAA. Tacos MONREAL IMG US PROCEDURES Final R esult * Depression Screening (06/27/2023) Depression Screening abstracted Historical Provider HEALTH MAINTENANCE Final Result * Hepatitis C Screening (10/06/2012) Hepatitis C Screening abstracted Historical Provider HEALTH MAINTENANCE Final Result from Last 3 Months or Most Recently Relevant to Health Maintenance Insurance MEDICARE [facility] Care Teams Regional Wildlife Agent Relationship Specialty Start Date End Date Tacos Damon PA [address] [place] [address] PCP - General Internal Medicine 10/21/20
[2024-08-09] MEDS: iohexoL 350 MG/ML 100 ML INFUS..BTL IV (10:40)
[2024-08-10 10:29] LABS: Creatinine POC 0.9 mg/dL (0.5-1.4); GFR POC > 60
== END 2024-08-09 08:47 | disposition home or self-care (01) ==
LOC: HO.CT 08:46
PROVIDERS: Visit Provider Neurological Surgery
DX: I72.9 Aneurysm of unspecified site (principal)
CPT/HCPCS: 70496; 70498; 82565; Q9967

== ENCOUNTER → 2024-08-09 09:46 | Outpatient (BNV) | payer MEDICARE, SELFPAY | PROVIDERS: Visit Provider Specialist | DX: I67.1 Cerebral aneurysm, nonruptured (principal) | CPT/HCPCS: 70496; 70498 ==

== ENCOUNTER 2025-01-02 10:53 | Emergency (ER) | payer MEDICARE, SELFPAY ==
--- NOTE | ~2025-01-02 | XR_ITS ---
EXAMINATION: XR LUMBOSACRAL SPINE CLINICAL INFORMATION: back pain COMPARISON: None available. TECHNIQUE: Three views of the lumbosacral spine. FINDINGS: No significant scoliosis. There is a normal lordosis. There is no subluxation. There is no fracture, compression deformity, or suspicious bone lesion. There is mild multilevel disc degeneration. There is normal facet alignment and appearance. The sacrum and SI joints appear normal. There is no soft tissue abnormality. XR/XR lumbar spine 2-3V IMPRESSION: 1. No acute bony or soft tissue abnormality of the lumbar spine. 2. Mild multilevel disc degeneration. Electronically signed by: Darien Chavarria MD 01/02/2025 12:02 PM EDT
[2025-01-02 11:21] VITALS: BP 145/82; PULSE 76; RESP 16; TEMP 36.6; O2SAT 99; BMI 24.4
--- NOTE | 2025-01-02 11:22 | ED_ITS ---
HPI - General Adult General Chief complaint: Back Pain/Injury Stated complaint: Back Pain Time Seen by Provider: 01/02/25 12:43 Source: patient Mode of arrival: ambulatory Limitations: no limitations History of Present Illness ED Provider: Angelica Redd PA-C HPI narrative: Patient is a 70 year old assigned male at with no reported medical history presenting to the emergency department today with back pain. Patient states that over the last 2 days he has had lower back pain ever since getting up from sitting. Patient denies any history of IVDU or medical problems. Patient denies any urinary complaints. Patient denies any other trauma / injury. Patient denies any other complaints at this time. Related Data Previous Rx's ?Medication ?Instructions ?Recorded bacitracin zinc 500 unit-polymyxin 1 appl topical Q8H 7 days #28.4 03/11/21 B 10,000 unit/gram topical ointment grams naproxen 500 mg tablet 500 mg PO BID PRN pain 10 da ys #20 03/11/21 tabs prednisone 20 mg tablet 40 mg (2 x 20 mg) PO DAILY 5 days 06/17/23 #10 tabs meclizine 50 mg tablet 50 mg PO . t.i.d. PRN dizzin ess 06/30/23 #14 tabs cyclobenzaprine 5 mg tablet 5 mg PO TID PRN low back p ain 7 01/02/25 days #21 tabs prednisone 20 mg tablet 40 mg (2 x 20 mg) PO DAILY C OPD 01/02/25 exacerbation 5 days #10 tabs Allergies Allergy/AdvReac Type Severity Reaction Status Date / Time No Known Allergies (No Known Allergy Verified 01/02/25 11:23 Allergies*) Review of Systems Constitutional: Constitutional: Reports as per HPI Eyes: Eyes: Reports as per HPI ENT: Reports as per HPI Cardiovascular: Cardiovascular: Reports as per HPI Respiratory: Respiratory: Reports as per HPI Gastrointestinal: Gastrointestinal: Reports as per HPI Genitourinary: Genitourinary: Reports as per HPI Musculoskeletal: Musculoskeletal: Reports as per HPI Integumentary/Breasts: Skin/Breast: Reports as per HPI Neurologic: Reports as per HPI Psychiatric: Psychiatric: Reports as per HPI Endocrine: Endocrine: Reports as per HPI Hematologic/Lymphatic: Hematologic/Lymphatic: Reports as per HPI Allergic/Immunologic: Allergic/Immunologic: Reports as per HPI [facility] Past Medical History Attestation statement: The following information was validated with the patient. Source: old records reviewed and nursing notes reviewed Social History Social History Advance Directives: No Advance Directives Information Provided: No Physical Exam ED Vital Signs: Vital Signs - 24 hr 01/02/25 11:21 01/02/25 12:44 01/02/25 12:48 Temperature 97.9 F 97.4 F 97.4 F Pulse Rate 76 68 68 Respiratory Rate 16 18 18 Blood Pressure 145/82 H 150/84 H 150/84 H Pulse Oximetry 99 98 98 Oxygen Delivery Method Room Air Room Air Room Air BMI result Body Mass Index 24.4 Const General: cooperative, no acute distress, alert and awake Nutritional Appearance: well nourished Orientation/consciousness: patient oriented x3 HENMT Head: Yes normal to inspection and Yes atraumatic Ears: hearing grossly normal bilaterally and external ears normal General nose exam: Normal external nose present, no nasal discharge noted and no epistaxis Face and sinus: Yes normal facial exam, No abrasion and No laceration Mouth: Normal oral and palatal mucosa present, no drooling and no muffled voice Eyes General: appearance normal, both eyes and all related structures Periorbital: periorbital findings normal Eyelids: Yes eyelids normal Conjunctivae: conjunctivae normal Pupils: Equal, round and reactive pupils present EOM: EOMs intact bilaterally Neck Neck: Yes normal visual inspection and Yes full ROM Resp Effort & Inspection: normal respiratory effort and able to speak in complete sentences Neuro General: patient oriented x3, moves all extremities and CN's II-XI intact bilaterally Cranial nerves: Yes Equal, round and reactive pupils present Cognition (Neuro): normal cognition Extrem General: Yes normal to inspection, Yes full ROM and Yes capillary refill normal Psych Appearance: grossly normal Mental Status: mental status grossly normal Affect: normal affect Attitude: cooperative Thought process: Normal thought process present Thought content: Normal thought content present Insight: Good insight present (Psych) Course Course Course Narrative: This is a Rapid Medical Examination (RME) performed by Katelin Goldstein PA-C in triage. Full HPI, ROS, assessment and treatment plan per primary provider in the Main ED. Hx: 70 yo M here for eval of lower back pain. admits to physical laborious job. no radiation of pain. 12/21 pain. no hx IVDU or spinal sx. no blunt injury/trauma. no urinary sx. Plan: lumbar xrs Medical Decision Making Medical Decision Making MDM Narrative: Patient is a 70 year old assigned male at with no reported medical history presenting to the emergency department today with back pain. Patient's physical exam was as noted in the physical exam portion of this note. I explained my physical exam findings to the patient. I answered all questions asked by the patient. Patient's clinical presentation is most consistent with a lumbar strain. I stressed the importance of the patient taking his medication as directed (either prescribed or as the over the counter packaging recommends). I stressed the importance of the patient following up with his primary care provider. I stressed the importance of the patient returning to the emergency department immediately if his symptoms were to worsen or if he were to develop any dizziness, shortness of breath, difficulty breathing, chest pain, blurry vision, loss of vision, nausea, vomiting, abdominal pain, fever, chills, back pain, or any other complaints. Patient verbalized agreement and understanding with this treatment plan and discharge. Differential Diagnosis Differential Diagnoses: The differential diagnosis associated with the presentation includes Lumbar strain Lumbar sprain Admission/Observation Consideration of admission/observation: Escalation of care including admission/observation considered Patient would have been admitted to the hospital had his work up had any findings where hospital admission was appropriate and his clinical presentation warranted hospital admission. Independent Interpretation I performed an independent interpretation of an: Plain X-Ray Interpretation: My interpretation is in agreement with the radiologist's impression of this imaging study. Reason for Exam: back pain EXAMINATION: XR LUMBOSACRAL SPINE CLINICAL INFORMATION: back pain COMPARISON: None available. TECHNIQUE: Three views of the lumbosacral spine. FINDINGS: No significant scoliosis. There is a normal lordosis. There is no subluxation. There is no fracture, compression deformity, or suspicious bone lesion. There is mild multilevel disc degeneration. There is normal facet alignment and appearance. The sacrum and SI joints appear normal. There is no soft tissue abnormality. XR/XR lumbar spine 2-3V IMPRESSION: 1. No acute bony or soft tissue abnormality of the lumbar spine. 2. Mild multilevel disc degeneration. Electronically signed by: Darien Chavarria MD 01/02/2025 12:02 PM EDT RP Dictated By: Darien Chavarria MD Signed By: Electronically signed by Darien Chavarria MD 01/02/25 1202 Radiology Impression Discussion of test interpretation with radiology: I have reviewed the radiologist's reading. Prescription Management I considered prescription management with: Pain Medication (patient prescribed pain medication) Discharge Plan Discharge Clinical Impression: Strain of lumbar region Patient Disposition: Home, Self-Care Instructions: Back Pain (ED), Lower Back Exercises (ED) Additional Instructions: Your x-ray showed no acute process but did show arthritis. Take your medication as prescribed. IF you are prescribed home medications and/or you are taking over the counter medications at home - it is very important you continue to do so as prescribed / directed unless told otherwise. Follow up with your primary care provider. Return to the emergency department immediately if your symptoms worsen or if you develop any numbness, tingling, dizziness, shortness of breath, difficulty breathing, chest pain, blurry vision, loss of vision, nausea, vomiting, abdominal pain, fever, chills, back pain, or any other complaints. Please see the information below about our Patient Portal. If you are not yet enrolled in the [facility] Patient Portal, you will receive an enrollment email invitation following your visit to any [facility] setting. You may also self-enroll in the Patient Portal by visiting our website: [email or web address] The following information is required to access the Patient Portal: - Your [facility] Medical Record Number - Your personal home email address (must match what is in your electronic medical record, Registration staff can assist with this) - Name - Date of Capabilities of the Patient Portal: - Message some providers - View upcoming appointments - Access your health summary, medical history, and visit history - View current conditions and allergies - View procedure and lab results - View your medications, including guidelines, side effects, and precautions - Complete pre-appointment questionnaires requested by your provider - Ready summary reports of your office visits and procedures To access the Patient Portal Mobile Lew, follow these directions: - Search Veotag in the Lew Store or Dispop Store - Download the Lew - Search for [facility] - Enter your login/password Prescriptions: New prednisone 20 mg tablet 40 mg PO DAILY 5 Days Qty: 10 0RF cyclobenzaprine 5 mg tablet 5 mg PO TID PRN (Reason: low back pain) 7 Days Qty: 21 0RF No Action naproxen 500 mg tablet 500 mg PO BID PRN (Reason: pain) 10 Days Qty: 20 0RF bacitracin zinc-polymyxin B 500-10,000 unit/gram ointment 1 appl topical Q8H 7 Days Qty: 28.4 0RF meclizine 50 mg tablet 50 mg PO . t.i.d. PRN (Reason: dizziness) Qty: 14 0RF prednisone 20 mg tablet 40 mg PO DAILY 5 Days Qty: 10 0RF Referrals: Tacos Damon PA [Primary Care Provider, Internal Medicine] Stand Alone Forms: Work/School Release Interventions: ED Discharge Assessment Last Done: 01/02/25 12:48 Discharge Date/Time: 01/02/25 12:52 Print Language: Guatemalan
[2025-01-02 12:44] VITALS: BP 150/84; PULSE 68; RESP 18; TEMP 36.3; O2SAT 98
[2025-01-02 12:48] VITALS: BP 150/84; PULSE 68; RESP 18; TEMP 36.3; O2SAT 98
--- OUTSIDE RECORDS SUMMARY | 2025-01-02 17:43 | XMS_ITS | Clinical Summary ---
Author Organization [facility] Address [address] [place] [phone] Phone Care Team Providers Care Transit Clerk Name Role Phone Tacos Damon Primary Care Provider [phone] Allergies No known active allergies Medications doxycycline hyclate (VIBRA-TABS) 100 mg tablet Take 1 tablet (100 mg total) by mouth 2 (two) times a day. Active bisacodyL (DULCOLAX) 5 mg EC tablet Take 2 tablets by mouth right before your first dose of liquid prep. 4 Active meclizine (ANTIVERT) 50 mg tablet [...] each day. 90 each 3 5 Active Dupixent Pen 300 mg/2 mL pen 5 Active Active Problems Problem Noted Date [...] would obtain another CTA in 1 year. Assessment & Plan (08/17/2024 10:52 AM EDT): I reviewed the CTA findings in detail with Mr. Patel and his . I scanned through all of the source images and have a difficult time finding the aneurysms mentioned in the previous report. It is odd that these were done at the same institution so the old study was available for comparison and now none of the 3 aneurysms are visualized. The patient has no risk factors and feels quite well. I am not worried since certainly there is been no growth or new aneurysms but feel that we should repeat the study again given the discrepancy between the 2. The patient agrees and we will repeat his CTA in 1 year. Primary hypertension 07/14/2023 MRSA cellulitis 02/22/2014 Adjustment disorder with depressed mood 05/04/19 06 Encounters Date Type Department Care Team Description 11/15/2024 10:00 AM EDT Consult Orthopedic Surgery - [place] [address] [place] [address] Clarissa Farias PA Trigger finger, right ring finger (Primary Dx); Pain in finger of right hand; Contracture of joint of finger of right hand 10/09/2024 11:05 AM EDT - 10/09/2024 11:59 PM EDT Hospital Encounter [address] [phone] Pain in finger of right hand Discharge Disposition: Home or Self Care 10/09/2024 10:30 AM EDT Office Visit Adult Medicine [address] [phone] Aaron, Imelda, PA Pain in finger of right hand (Primary Dx); Contracture of joint of finger of right hand 10/05/2024 Telephone Adult Medicine [address] [phone] Tacos Damon PA from Last 3 Months Immunizations Immunization Administration Dates Next Due Influenza Quadravalent, MDCK [...] repeat in three years COLONOSCOPY 03/02/2011 PROCEDURE: PA COLONOSCOPY STOMA DX INCLUDING COLLJ SPEC SPX; [...] ial hypertension Aneurysm (CMS/HCC V24) DX:[facility] ([facility]) Family History Medical History Relation Name Comments [...] Date Smoking Tobacco: Former Smokeless Tobacco: Never Alcohol Use Standard Drinks/Week Comments No 0 (1 standard drink = 0.6 oz pur e alcohol) Sex and Gender Information Value Date Recorded Sex Assigned at Not on file Legal Sex Male 4:34 AM EST Gender Identity Not on file Sexual Orientation Not on file Obstetrics History Last Filed Vital Signs Vital Sign Reading Time Taken Comments Blood Pressure 129/73 10/09/2024 10:11 AM EDT Pulse 75 10/09/2024 10:11 AM EDT Temperature 36.3 C (97.3 F) 10/09/2024 10:11 AM EDT Respiratory Rate 14 10/09/2024 10:11 AM EDT Oxygen Saturation 98% 10/09/2024 10:11 AM EDT Inhaled Oxygen Concentration - - Weight 88 kg (194 lb) 10/09/2024 10:11 AM EDT Height 185.4 cm (6' 1 ) 10/09/2024 10:11 AM EDT Body Mass Index 25.6 10/09/2024 10:11 AM EDT Plan of Treatment Health Maintenance Due Date Last Done Comments Zoster Vaccines (1 of 2) 11/22/2005 Falls Risk Assessment 02/20/2022 Social Influencers of Health Screening 02/20/2022 Depression Screening 03/14/2024 06/27/2023 Medicare Annual Wellness Visit 06/26/2024 06/27/2023 COVID-19 Vaccine ( season) 2024 Influenza Vaccine (#1) 2024 , 02/07/2018, 01/03/2017, Additional history exists Hypertension/CHF/CAD Annual [...] Procedure Name Priority Date/Time Associated Diagnosis Comments PA INJECTION SINGLE TENDON SHEATH OR LIGAMENT APONEUROSIS Routine 11/15/2024 10:00 AM EDT Trigger finger, right ring finger XR FINGERS 2+ VIEWS RIGHT Routine 10/09/2024 11:12 AM EDT Pain in finger of right hand COMPREHENSIVE METABOLIC PANEL Routine 07/16/2024 9:06 AM EDT Need for vaccination against Streptococcus pneumoniae Need for tetanus, diphtheria, and acellular pertussis (Tdap) vaccine Primary hypertension Brain aneurysm Adjustment disorder with depressed mood LIPID PANEL WITH REFLEX TO DIRECT LDL Routine 07/16/2024 9:06 AM EDT Need for vaccination against Streptococcus pneumoniae Need for tetanus, diphtheria, and acellular pertussis (Tdap) vaccine Primary hypertension Brain aneurysm Adjustment disorder with depressed mood HM COLONOSCOPY Routine 08/04/2023 US ABDOMINAL AORTA REAL [...] Recently Relevant to Health Maintenance Results * PA INJECTION SINGLE TENDON SHEATH OR LIGAMENT APONEUROSIS (11/15/2024 10:00 AM EDT) Narrative Clarissa Fairas PA - 11/15/2024 10:00 AM EDT JOCELIN Darden 11/15/2024 10:52 AM Hand / UE Inj/Asp: R ring A1 for trigger finger Indications: pain Details: 27 G needle, volar approach Medications: 40 mg triamcinolone acetonide 40 mg/mL Outcome: tolerated well, no immediate complications Site was prepped in standard fashion using alcohol swab, sterile technique was used to perform the injection, the patient tolerated the procedure well and a band-aid dressing was applied Informed Consent: Laterality: Right Relevant images/test results available and reviewed: yes Health status cleared: Yes Procedure/treatment, purpose, treatment alternatives, risks/potential complications and benefits explained: yes Risk/complications/benefits details: Risks and benefits of corticosteroid injection were discussed, including risk of pain, bleeding, infection, tissue attenuation, tendon rupture, changes in skin color, and injury to surrounding structures such as arteries, veins and nerves. We also discussed the patient may develop worsening pain for a few days before having improvement in their symptoms. Patient questions answered: yes Patient agrees, verbalizes understanding, and wants to proceed: yes Consent given by: Patient Informed consent discussion completed by Physician/TAWANA with patient: Verbal Pre-procedure timeout performed: yes us Clarissa MONREAL IN CLINIC/BEDSIDE ORDERABLES Fi nal Result * XR Fingers 2+ Views Right (10/09/2024 11:12 AM EDT) Anatomical Region Laterality Modality Upper Extremities, Fingers Right Radio graphic Imaging 10/09/2024 11:2 3 PM EDT Narrative 10/09/2024 11:24 PM EDT Right fourth finger, 3 views. History pain. There is no evidence of fractures, dislocations or destructive lesions. Alignment is maintained. CONCLUSIONS: Unremarkable radiographs of the right fourth finger. -------- FINAL REPORT -------- Dictated By: Kaelyn Cody Dictated Date: 10/09/2024 23:23 ET Assigned Physician: Kaelyn Cody Reviewed and Electronically Signed By: Kaelyn Cody Signed Date: 10/09/2024 23:24 ET Workstation ID: [id number] Transcribed By: Self Edit Transcribed Date: 10/09/2024 23:23 ET Procedure Note Kaelyn Cody MD - 10/09/2024 Right fourth finger, 3 views. History pain. There is no evidence of fractures, dislocations or destructive lesions.Alignment is maintained. CONCLUSIONS: Unremarkable radiographs of the right fourth finger. -------- FINAL REPORT -------- Dictated By: Kaelyn Cody Dictated Date: 10/09/2024 23:23 ET Assigned Physician: Kaelyn Cody Reviewed and Electronically Signed By: Kaelyn Cody Signed Date: 10/09/2024 23:24 ET Workstation ID: [id number] Transcribed By: Self Edit Transcribed Date: 10/09/2024 23:23 ET us Imelda Galen MONREAL IMG XR PROCEDURES Final Result * (ABNORMAL) Lipid panel with reflex to direct LDL (07/16/2024 9:06 AM EDT) Cholesterol 176 0 - 200 mg/dL LAB CHEMISTRY METHOD 07/16/2024 1:48 PM EDT [facility] Triglycerides 101 0 - 150 mg/dL LAB CHEMISTRY METHOD 07/16/2024 1:48 PM EDT [facility] HDL 42 >=40 mg/dL LAB CHEMISTRY METHOD 07/16/2024 1:48 PM EDT [facility] LDL Calculated 114(H) 0 - 100 mg/dL LAB CHEMISTRY METHOD 07/16/2024 1:48 PM EDT [facility] VLDL Cholesterol Doron 20.2 mg/dL LAB CHEMISTRY METHOD 07/16/2024 1:48 PM EDT [facility] Non HDL Chol. (LDL+VLDL) 134 <145 mg/dL LAB CHEMISTRY METHOD 07/16/2024 1:48 PM EDT [facility] Chol/HDL Ratio 4.2 0.0 - 4.4 LAB CHEMISTRY METHOD 07/16/2024 1:48 PM EDT [facility] Blood Venous blood specimen / Unknown Venipuncture / Unknown 07/16/2024 9:06 AM EDT 07/16/2024 9:06 AM EDT us Tacos MONREAL LAB BLOOD ORDERABLES Kirstie l Result [facility] [address] [place] [address], * Comprehensive metabolic panel (07/16/2024 9:06 AM EDT) Sodium 142 133 - 145 mmol/L LAB CHEMISTRY METHOD 07/16/2024 1:[address] [facility] Potassium 5.0 3.5 - 5.5 mmol/L LAB CHEMISTRY METHOD 07/16/2024 1:[address] [facility] Chloride 110 96 - 110 mmol/L LAB CHEMISTRY METHOD 07/16/2024 1:[address] [facility] CO2 27 21 - 32 mmol/L LAB CHEMISTRY METHOD 07/16/2024 1:[address] [facility] Anion Gap 5 3 - 11 LAB CHEMISTRY METHOD 07/16/2024 1:[address] [facility] Glucose 100 70 - 100 mg/dL LAB CHEMISTRY METHOD 07/16/2024 1:[address] [facility] BUN 12 5 - 25 mg/dL LAB CHEMISTRY METHOD 07/16/2024 1:[address] [facility] Creatinine 0.93 0.70 - 1.30 mg/dL LAB CHEMISTRY METHOD 07/16/2024 1:[address] [facility] eGFR 89 >=60 mL/min/1. 73m2 LAB CHEMISTRY METHOD 07/16/2024 1:[address] [facility] Comment:Calculation based on the Chronic Kidney Disease Epidemiology Collaboration (CKD-EPI) equation refit without adjustment for race. BUN/Creatinine Ratio 12.9 LAB CHEMISTRY METHOD 07/16/2024 1:[address] [facility] Calcium 8.8 8.5 - 10.5 mg/dL LAB CHEMISTRY METHOD 07/16/2024 1:[address] [facility] AST (SGOT) 17 10 - 42 unit/L LAB CHEMISTRY METHOD 07/16/2024 1:[address] [facility] ALT (SGPT) 21 10 - 60 unit/L LAB CHEMISTRY METHOD 07/16/2024 1:[address] [facility] Alkaline Phosphatase 92 42 - 121 unit/L LAB CHEMISTRY METHOD 07/16/2024 1:[address] [facility] Total Protein 6.8 6.0 - 8.0 g/dL LAB CHEMISTRY METHOD 07/16/2024 1:[address] [facility] Albumin 3.6 3.2 - 5.0 g/dL LAB CHEMISTRY METHOD 07/16/2024 1:[address] [facility] Total Bilirubin 0.4 0.0 - 1.4 mg/dL LAB CHEMISTRY METHOD 07/16/2024 1:[address] [facility] Blood Venous blood specimen / Unknown Venipuncture / Unknown 07/16/2024 9:06 AM EDT 07/16/2024 9:06 AM EDT Tacos MONREAL LAB BLOOD ORDERABLES Kirstie l Result [facility] [address] [place] [address], [place] [phone] * Colonoscopy (08/04/2023) Colonoscopy abstracted, no interpretation [...] Proximal aorta measures 2.3 cm AP, mid aorta measures 1.8 cm AP, distal aorta measures 1.7 cm AP. Proximal common iliac arteries measure 1.1 cm each. [...] Final R esult * Depression Screening (06/27/2023) Pathologist [facility] Depression Screening abstracted Historical Provider HEALTH MAINTENANCE Final Result * Hepatitis C Screening (10/06/2012) Pathologist [facility] Hepatitis C Screening abstracted Historical Provider HEALTH MAINTENANCE Final Result from Last 3 Months or Most Recently Relevant to Health Maintenance Insurance [facility] Care Teams Transit Clerk Relationship Specialty Start Date End Date Tacos Damon PA [address] [place] [phone] PCP - General Internal Medicine 10/21/20
== END 2025-01-02 12:52 | disposition home or self-care (01) ==
PROVIDERS: Emergency Provider Emergency Medicine; PCP Physician Assistant Medical
DX: S39.012A Strain of muscle, fascia and tendon of lower back, initial encounter (principal); X58.XXXA Exposure to other specified factors, initial encounter; Y93.89 Activity, other specified; Y92.89 Other specified places as the place of occurrence of the external cause; Y99.9 Unspecified external cause status
CPT/HCPCS: 72100; 99282; 99283

== ENCOUNTER → 2025-01-02 11:23 | Outpatient (BNV) | payer MEDICARE, SELFPAY | PROVIDERS: Emergency Provider Emergency Medicine; PCP Physician Assistant Medical; Visit Provider Radiology Diagnostic Radiology | DX: M51.360 Other intervertebral disc degeneration, lumbar region with discogenic back pain only (principal) | CPT/HCPCS: 72100 ==